=== PATIENT | male | born 1965 | race African-American/Black ===

== ENCOUNTER 2025-08-04 17:56 | Emergency (ER) | payer OTHER, SELFPAY ==
[2025-08-04 18:02] VITALS: BP 131/76
[2025-08-04 18:45] LABS: Hematocrit 39.3 % (39.0-52.0); Hemoglobin 12.6 g/dL (13.0-18.0); Mean Corp Hgb Conc. 32.1 g/dL (33.0-37.0); Mean Corpuscular Volume 84.7 fL (80.0-94.0); Nucleated Red Blood Cells % 0 % (-); Platelet Count 134 10^3/uL (130-400); Red Cell Dist. Width 14.6 % (11.5-14.5)
[2025-08-04 18:59] LABS: ALT (SGPT) 34 U/L (0-50); AST (SGOT) 24 U/L (17-59); Albumin 3.8 g/dl (3.5-5.0); Alkaline Phosphatase 60 U/L (38-126); Blood Urea Nitrogen 16 mg/dl (9-20); Calcium 8.3 mg/dl (8.4-10.2); Carbon Dioxide 27 mmol/L (22-30); Chloride 102 mmol/L (98-107); Glucose 79 mg/dl (70-99); Potassium 4.4 mmol/L (3.5-5.1); Sodium 134 mmol/L (135-145); Total Protein 7.0 g/dl (6.3-8.2); eGFR > 60.00
[2025-08-04 22:26] VITALS: BP 124/82
--- NOTE | 2025-08-04 22:56 | ED.GENMED ---
History of Present Illness
General
Chief Complaint: Fatigue
Source: patient
Exam Limitations: none
Time Seen by Provider: 08/04/25 22:54
Nursing documentation reviewed up to this point in time: agreed with
History of Present Illness
History of Present Illness:
59-year-old male with a past medical history of CHF on Lasix, A-fib on carvedilol, presents to the ER today with concerns of generalized fatigue. He is concerned that he may have went into a fib. Of note, he reports that a few years ago he was
going to a routine primary care visit when he did a EKG and they found that he was in A-fib. He reports that he had no symptoms at the time. He subsequently had to be cardioverted and was placed on carvedilol. He has been well-controlled since.
Of note, he was sick with the flu last week and states that he has been recovering was concerned that this may have thrown him into A-fib. However, he denies palpitations, lightheadedness, dizziness, chest pain. He reports that he wanted general
blood work checked and his vital signs checked to make sure that everything was normal. He reports that the past 2 nights, he has had trouble falling asleep but once he is able to fall asleep, he is able to sleep through the night. He denies any
trouble with breathing laying flat, he denies any shortness of breath, denies any gasping for air. He reports that he has been starting to feel better and reports that with the flu, his cough is gone away and he has not had any fevers. He denies
any swelling in his legs. He denies any recent weight gain. He follows with Dr. Argueta from [facility]. He denies syncopal episodes.
Review of Systems
Review of Systems
All Other Systems: ROS reviewed and negative except as documented in HPI and ROS
Phy Exam
Physical Exam
Physical Exam:
General: Patient is well appearing and in no acute distress; non-toxic
Skin: Warm and dry, no rashes or lesions
Head: Normocephalic, atraumatic
Eyes: Sclera non-icteric. EOMs intact.
Cardiac: Regular rate and rhythm, no murmurs
Peripheral Vascular: No lower extremity swelling or edema, 2+ DP and PT pulses bilaterally
Pulm: Normal respiratory effort, no wheezes, rales, or rhonchi, normal respiratory effort
Abdomen: No abdominal tenderness to palpation
Neuro: CN II-XII intact, no focal neurologic deficits.
Psychiatric: Appropriate mood and affect.
Course
Orders/Labs/Results
Orders:
Orders
08/04/25 18:07
Electrocardiogram (*1) Urgent
Reason for Study: Fatigue / Weakness
EKG- Treatment ONCE
08/04/25 18:19
Complete Blood Count/With Diff Urgent
Comprehensive Metabolic Panel Urgent
Abnormal Lab Results
08/04/25
18:19
RBC 4.64 L 10^6/uL
(4.70-6.10)
Hgb 12.6 L g/dL
(13.0-18.0)
MCHC 32.1 L g/dL
(33.0-37.0)
RDW 14.6 H %
(11.5-14.5)
MPV 11.7 H fL
(7.4-10.4)
Monocytes % 10.3 H %
(1.7-9.3)
Sodium 134 L mmol/L
(135-145)
Calcium 8.3 L mg/dl
(8.4-10.2)
08/04/25 18:19
08/04/25 18:19
Vital Signs
Initial and Last Documented VS:
Initial Vital Signs
Temp Pulse Resp BP Pulse Ox
97.8 F 61 20 131/76 96
08/04/25 18:02 08/04/25 18:02 08/04/25 18:02 08/04/25 18:02 08/04/25 18:02
Last Documented Vital Signs
Temp Pulse Resp BP Pulse Ox
97.8 F 52 20 145/90 97
08/04/25 18:02 08/04/25 23:44 08/04/25 23:44 08/04/25 23:44 08/04/25 23:44
MDM/Problems Addressed
Differential Diagnosis Includes:
Differentials include postviral syndrome, electrolyte derangement, cardiac arrhythmia, hyponatremia, etc.
MDM/Problems Addressed:
59-year-old male with a past medical history of CHF on Lasix, A-fib on carvedilol, presents to the ER today with concerns of generalized fatigue. He is concerned that he may have went into a fib. Of note, he reports that a few years ago he was
going to a routine primary care visit when he did a EKG and they found that he was in A-fib. He not have any symptoms of that at this time. He reports that he recently was diagnosed with influenza and had trouble falling asleep. He adamantly
denies shortness of breath, or orthopnea. Patient came in requesting routine blood work and vital sign check. On my physical exam, he is well-appearing in no acute distress no respiratory distress. His lungs are clear no crackles. No lower
extremity swelling. Patient is compliant with his Lasix. Labs reviewed, CBC shows mild anemia at baseline. CMP unremarkable. Patient went for EKG which shows no evidence of A-fib. Patient adamantly denies chest pain. I did offer chest x-ray
and other cardiac blood work however patient states that he does not feel short of breath and states that the symptoms he is having does not feel at all similar to when he had CHF exacerbation. Suspect post viral syndrome. Patient will see his
toby maker and PCP in follow-up. Patient stable for discharge.
Chronic conditions affecting care:
CHF, hypertension
*Pulse Oximetry
SaO2: 97
Oxygen Mode of Delivery: Room air
Patient hypoxic: no
*Critical Care Note
Total Time (30-74mins, 75-104mins- exclusive of procedures): Not Applicable
ED Attending Note
-
Portions of this chart may have been created with voice recognition software.� Occasional wrong word or��sound alike� substitutions may have occurred due to the inherent limitations of voice recognition software.
Discharge Plan
Departure
Patient Disposition: Home (Routine Discharge)
Date of Disposition: 08/04/25
Time of Disposition: 23:08
Patient with high blood pressure during this ER visit?: Yes
Condition: Good
Discharge Problem:
Fatigue, Post viral syndrome
Instructions: Fatigue (DC), Cough, runny nose, and colds, BLOOD PRESSURE
Prescriptions:
No Action
carvedilol 12.5 MG tablet
12.5 mg PO BID
valsartan 80 MG tablet
40 mg PO HS Qty: 30 0RF
furosemide 20 MG tablet
20 mg PO DAILY Qty: 30 0RF
Referrals:
Tenthoff,Alanna Cobb MD [Family Provider, [facility]]
Activity Restrictions/Additional Instructions:
As discussed, please follow-up with your primary care provider and your toby maker as needed.
PLEASE RETURN TO THE ER SHOULD YOU DEVELOP CHEST PAIN, SHORTNESS OF BREATH, SWELLING IN YOUR LOWER EXTREMITIES, TROUBLE LAYING FLAT, JAW PAIN, LEFT UPPER EXTREMITY PAIN, WEAKNESS, FEVERS OR CHILLS, OR ANY OTHER SIGNS OR SYMPTOMS CONCERNING TO YOU
Interventions
Interventions:
*Risk Screen - Suicide Last Done: 08/04/25 18:06
*General Assessment Last Done: 08/04/25 18:06
*Neglect/Abuse Screening Last Done: 08/04/25 18:06
*ED- Fall Risk Assessment Last Done: 08/04/25 23:30
*ED COVID-19 Vaccine History Last Done: 08/04/25 18:06
*Nursing Disposition Last Done: 08/04/25 23:44
Discharge Date and Time
Discharge Date/Time: 08/04/25 23:46
Print Language: [id number]
[2025-08-04 23:44] VITALS: BP 145/90
== END 2025-08-04 23:46 | disposition home or self-care (01) ==
LOC: EMR 17:56
PROVIDERS: Emergency Medicine; EMERGENCY PHYSICIAN Emergency Medicine; FAMILY PHYSICIAN Family Medicine
DX: G93.31 Postviral fatigue syndrome (principal); D64.9 Anemia, unspecified; I48.91 Unspecified atrial fibrillation; I11.0 Hypertensive heart disease with heart failure; I50.9 Heart failure, unspecified
CPT/HCPCS: 99284; 80053; 85025; 93005